=== PATIENT | female | born 1995 | race Caucasian/White ===

== ENCOUNTER → 2017-10-10 08:49 | Outpatient (CLI) | payer OTHER, SELFPAY ==
[2017-10-10 09:59] LABS: Vitamin D,25 Hydroxy 24.1 ng/mL (29.95-100.01)
[2017-10-10 10:01] LABS: Estradiol 34.9 pg/mL; Follicle Stimulating Hormone 7.2 mIU/mL; Luteinizing Hormone 4.6 mIU/mL; Prolactin 16.2 ng/mL; Thyroid Stim Hormone (TSH) 1.93 uIU/mL (0.358-3.74)
[2017-10-11 03:07] LABS: DHEA Sulfate 110.8 ug/dL (110.0-431.7)
[2017-10-11 12:34] LABS: Sex Hormone-binding Globulin 52.8 nmol/L (24.6-122.0)
[2017-10-15 14:14] LABS: 17-Hydroxyprogesterone 66 ng/dL (.)
== END ==
PROVIDERS: Family Provider Dentist; PCP Dentist; Visit Provider Obstetrics & Gynecology
DX: R10.2 Pelvic and perineal pain (principal); R19.8 Other specified symptoms and signs involving the digestive system and abdomen
CPT/HCPCS: 36415; 82306; 82533; 82627; 82670; 83001; 83002; 83498; 84146; 84270; 84403; 84443; 82626

== ENCOUNTER → 2020-05-25 17:03 | Outpatient (CLI) | payer SELFPAY ==
[2020-05-25 18:55] LABS: hCG Titer Quant., Serum 11 mIU/mL (1-3)
== END ==
PROVIDERS: PCP Dentist; Visit Provider Obstetrics & Gynecology
DX: Z34.81 Encounter for supervision of other normal pregnancy, first trimester (principal)
CPT/HCPCS: 36415; 84702; 86900; 86901

== ENCOUNTER → 2020-05-31 15:44 | Outpatient (CLI) | payer SELFPAY ==
[2020-05-31 18:22] LABS: hCG Titer Quant., Serum 1 mIU/mL (1-3)
== END ==
PROVIDERS: PCP Dentist; Visit Provider Obstetrics & Gynecology
DX: O20.0 Threatened abortion (principal); Z3A.00 Weeks of gestation of pregnancy not specified
CPT/HCPCS: 36415; 84702